=== PATIENT | male | born 1960 | race Caucasian/White ===

== ENCOUNTER 2017-06-16 08:38 | Emergency (ER) | payer OTHER ==
[2017-06-16 12:16] VITALS: BP 133/85
== END 2017-06-16 11:25 | disposition home or self-care (01) ==
LOC: ED 08:38
DX: S61.411A Laceration without foreign body of right hand, initial encounter (principal); W26.9XXA Contact with unspecified sharp object(s), initial encounter; Y93.89 Activity, other specified; Y99.8 Other external cause status; Y92.89 Other specified places as the place of occurrence of the external cause
CPT/HCPCS: 90715; J2001; J3490